=== PATIENT | male | born 1995 | race Two or more races ===

== ENCOUNTER 2025-08-31 20:39 | Inpatient (IN) | payer SELFPAY ==
[2025-08-31 20:40] VITALS: BP 147/92; PULSE 100; RESP 17; TEMP 36.3; O2SAT 97
[2025-08-31 20:41] VITALS: PULSE 95; RESP 20; O2SAT 99
[2025-08-31 20:42] VITALS: BMI 22.3
--- NOTE | 2025-08-31 20:48 | PD.EDALCOH ---
ED Alcohol RME/HPI General Chief Complaint: Alcohol Stated Complaint: HYPERGLYCEMIA Time Seen by Provider: 08/31/25 20:41 Arrival date/time: 08/31/25 20:39 30-year-old male patient came in for evaluation regarding hyperglycemia. Apparently patient was noted to be more lethargic than usual, has been drinking all day today, consuming already 12 packs of beer. Patient denies any fever. Denies any abdominal pain denies any trauma or fall. Patient blood sugar was noted to be above 500 per EMS. Patient told me that he took his insulin today. Related Data Allergies Allergy/AdvReac Type Severity Reaction Status Date / Time No Known Allergies Allergy Verified 08/31/25 20:40 Review of Systems Review of Systems Narrative Review of Systems: Review of system reviewed and within normal limits except mentioned in HPI ED Exam Narrative Physical exam: VITAL SIGNS: Reviewed. GENERAL APPEARANCE: Alert oriented however drowsy, follows commands, no acute distress, HEAD AND FACE: Non-traumatic. ENT: PERRL, pink conjunctivitis, eyelid no trauma, Mucous membrane moist. NECK: Supple, nontender, no nuchal rigidity. CHEST: No tenderness, no crepitus, no paradoxical movement, no retractions. LUNGS: Clear, well ventilated, symmetric, no rales, no wheezing, no ronchi, no stridor, good breath sounds bilaterally. HEART: Regular rate, regular rhythm, no murmur, no gallops. ABDOMEN: Soft, positive bowel sounds, nondistended, no guarding, nontender, no rebound, no masses, RECTAL: Deferred. GENITAL: Deferred. NEUROLOGICAL: Gross motor function intact sensory function intact, Appropriate for age. MUSCULOSKELETAL: low back nontender, full range of motion. EXTREMITIES: Nontender, full range of motion. SKIN: Color pink, dry, no rash, no lacerations, no abrasions, no contusions. LYMPHATICS: Deferred. Course Quality Measures none Orders Category Date Time Status Admit to Inpatient Status Routine Admission 09/01/25 00:16 Active Patient Condition Routine Admission 09/01/25 00:16 Ordered Bedside Blood Glucose Q1H Care 09/01/25 00:14 Active COVID-19 Screening Questionnaire NOW Care 08/31/25 23:58 Active Computational Mathematician Q4H Care 09/01/25 00:14 Active DKA Protocol QSHIFT Care 09/01/25 00:14 Active Decision to Admit X1 Care 08/31/25 23:58 Completed Intake and Output Q1H Care 09/01/25 00:15 Ordered Intake and Output Q1H Care 09/01/25 01:15 Ordered Intake and Output Q1H Care 09/01/25 02:15 Ordered Intake and Output Q1H Care 09/01/25 03:15 Ordered Intake and Output Q1H Care 09/01/25 04:15 Ordered Intake and Output Q1H Care 09/01/25 05:15 Ordered Intake and Output Q1H Care 09/01/25 06:15 Ordered Intake and Output Q1H Care 09/01/25 07:15 Ordered Intake and Output Q1H Care 09/01/25 08:15 Ordered Intake and Output Q1H Care 09/01/25 09:15 Ordered Intake and Output Q1H Care 09/01/25 10:15 Ordered Intake and Output Q1H Care 09/01/25 11:15 Ordered Intake and Output Q1H Care 09/01/25 12:15 Ordered Intake and Output Q1H Care 09/01/25 13:15 Ordered Intake and Output Q1H Care 09/01/25 14:15 Ordered Intake and Output Q1H Care 09/01/25 15:15 Ordered Intake and Output Q1H Care 09/01/25 16:15 Ordered Intake and Output Q1H Care 09/01/25 17:15 Ordered Intake and Output Q1H Care 09/01/25 18:15 Ordered Intake and Output Q1H Care 09/01/25 19:15 Ordered Intake and Output Q1H Care 09/01/25 20:15 Ordered Intake and Output Q1H Care 09/01/25 21:15 Ordered Intake and Output Q1H Care 09/01/25 22:15 Ordered Intake and Output Q1H Care 09/01/25 23:15 Ordered Miscellaneous Nursing Order NOW Care 09/01/25 00:20 Active NPO NOW Care 09/01/25 00:14 Active Notify provider NEEDED Care 09/01/25 00:14 Active Obtain weight NOW Care 09/01/25 00:20 Active Referral Registered Dietitian Routine Cons 09/01/25 00:14 Active Diet NPO (NOW) Diet 09/01/25 00:14 Active Acetone [Beta Hydroxybutyrate] Stat Lab 08/31/25 23:06 Completed Alcohol, Blood Medical Stat Lab 08/31/25 23:06 Completed Beta Hydroxybutyrate DAILY Lab 09/02/25 09:00 Ordered Beta Hydroxybutyrate DAILY Lab 09/03/25 09:00 Ordered Beta Hydroxybutyrate DAILY Lab 09/04/25 09:00 Ordered CBC AM DRAW Lab 09/02/25 05:00 Ordered CBC AM DRAW Lab 09/03/25 05:00 Ordered CBC AM DRAW Lab 09/04/25 05:00 Ordered CBC Stat Lab 08/31/25 21:17 Completed Comprehensive Metabolic Panel Stat Lab 08/31/25 23:06 Completed Drug Screen,Urine Stat Lab 08/31/25 21:21 Completed Glycohemoglobin w (eAG) Routine Lab 09/01/25 00:00 Completed Lactate (Lactic Acid) Q4H Lab 09/01/25 04:20 Completed Lactate (Lactic Acid) Q4H Lab 09/01/25 09:00 Completed Lactate (Lactic Acid) Q4H Lab 09/01/25 12:15 Stop Req MRSA Nasal Screen Stat Lab 09/01/25 00:20 Ordered Magnesium Q4H Lab 09/01/25 04:20 Completed Magnesium Q4H Lab 09/01/25 09:00 Completed Magnesium Q4H Lab 09/01/25 12:15 Ordered Magnesium Q4H Lab 09/01/25 16:15 Ordered Magnesium Q4H Lab 09/01/25 20:15 Ordered Magnesium Q4H Lab 09/02/25 00:15 Ordered Magnesium Q4H Lab 09/02/25 04:15 Ordered Magnesium Q4H Lab 09/02/25 08:15 Ordered Magnesium Q4H Lab 09/02/25 12:15 Ordered Magnesium Q4H Lab 09/02/25 16:15 Ordered Magnesium Q4H Lab 09/02/25 20:15 Ordered Magnesium Q4H Lab 09/03/25 00:15 Ordered Magnesium Stat Lab 08/31/25 23:06 Completed Partial Thromboplastin Time Stat Lab 08/31/25 21:17 Completed Phosphorous Q4H Lab 09/02/25 00:15 Ordered Phosphorous Q4H Lab 09/02/25 04:15 Ordered Phosphorous Q4H Lab 09/02/25 08:15 Ordered Phosphorous Q4H Lab 09/02/25 12:15 Ordered Phosphorous Q4H Lab 09/02/25 16:15 Ordered Phosphorous Q4H Lab 09/02/25 20:15 Ordered Phosphorous Q4H Lab 09/03/25 00:15 Ordered Phosphorous Stat Lab 08/31/25 23:06 Completed Renal Function Panel Q4 Lab 09/01/25 04:20 Completed Renal Function Panel Q4 Lab 09/01/25 09:00 Completed Renal Function Panel Q4 Lab 09/01/25 12:15 Ordered Renal Function Panel Q4 Lab 09/01/25 16:15 Ordered Renal Function Panel Q4 Lab 09/01/25 20:15 Ordered Renal Function Panel Q4 Lab 09/02/25 00:15 Ordered Renal Function Panel Q4 Lab 09/02/25 04:15 Ordered Renal Function Panel Q4 Lab 09/02/25 08:15 Ordered Renal Function Panel Q Lab 09/02/25 12:15 Ordered Renal Function Panel Q Lab 09/02/25 16:15 Ordered Renal Function Panel Q Lab 09/02/25 20:15 Ordered Renal Function Panel Q Lab 09/03/25 00:15 Ordered UA, C/S IF [Urinalysis, C/S if Indicated] Stat Lab 08/31/25 21:21 Completed VBG [Venous Blood Gas] Stat Lab 08/31/25 21:17 Completed Acetaminophen Tab [Tylenol Tab] Med 09/01/25 00:19 Active 650 mg PO Q6H PRN Dextrose 5%-Lactated Ringers [D5-Lr] 1,000 ml Med 09/01/25 00:13 Active Pot Chl Additive [KCl Additive] 20 meq IV 250 mls/hr Dextrose 5%-Lactated Ringers [D5-Lr] 1,000 ml Med 09/01/25 00:13 Active Pot Chl Additive [KCl Additive] 40 meq IV 250 mls/hr Dextrose 5%-Lactated Ringers [D5-Lr] 1,000 ml Med 09/01/25 00:13 Active IV 250 mls/hr Dextrose 50% Syr [D50w Syringe Abboject] Med 09/01/25 00:13 Active 25 ml IV PRNMRX1 PRN Famotidine Inj [Pepcid Inj] Med 09/01/25 09:00 Active 20 mg IVP QDAY Heparin Inj Med 09/01/25 06:00 Active 5,000 unit SC Q8HR Insulin Reg 100 Units/100 ml [Myxredlin] Med 08/31/25 23:56 Active 100 unit in 100 ml IV 0.1 unit/kg/hr Insulin Regular Med 09/01/25 00:13 Discontinued 5.9 unit IV X1 ONE Magnesium Sulfate 2 GM Ivpb [Magnesium Sulfate Ivpb] Med 09/01/25 00:13 Active 2 gm in 50 ml IV 25 mls/hr Ondansetron Inj [Zofran Inj] Med 09/01/25 00:19 Active 4 mg IV Q6H PRN Ondansetron Inj [Zofran Inj] Med 08/31/25 21:09 Discontinued 4 mg IVP X1 ONE POT PHOS 15 mMol in NS 250 ML [Pot Phos 15 mMol in NS Med 09/01/25 00:13 Active 250 ml] 15 mmol in 250 ml IV PRN POTASSIUM CHL 10 mEq IVPB [Kcl Ivpb] Med 09/01/25 00:13 Active 10 meq in 100 ml IV 100 mls/hr POTASSIUM CHL 10 mEq IVPB [Kcl Ivpb] Med 09/01/25 00:13 Active 10 meq in 100 ml IV PRN Ringers Lactated 1000 ml [Lactated Ringers] 1,000 ml Med 09/01/25 00:13 Active Pot Chl Additive [KCl Additive] 20 meq IV 250 mls/hr Ringers Lactated 1000 ml [Lactated Ringers] 1,000 ml Med 09/01/25 00:13 Active Pot Chl Additive [KCl Additive] 40 meq IV 250 mls/hr Ringers Lactated 1000 ml [Lactated Ringers] 1,000 ml Med 09/01/25 00:13 Active IV 250 mls/hr Ringers Lactated 1000 ml [Lactated Ringers] 1,000 ml Med 08/31/25 20:47 Discontinued IV 999 mls/hr Ringers Lactated 1000 ml [Lactated Ringers] 1,000 ml Med 08/31/25 20:51 Discontinued IV 999 mls/hr Senna [Senokot] Med 09/01/25 00:19 Active 2 tab PO BID PRN Sodium Bicarb 8.4% SYR Med 09/01/25 00:13 Active 50 ml IV Q4HR PRN Sodium Chloride 0.9% 250 ml [Ns] 250 ml Med 09/01/25 00:13 Active Sod Phos Additive [NaPhos Additive] 15 mmol IV 62.5 mls/hr Code Status Routine Oth 09/01/25 00:13 Ordered Oxygen Delivery DAILY RT 09/01/25 00:20 Active Vital Signs Vital signs: Vital Signs Temperature 97.3 F 08/31/25 20:40 Pulse Rate 100 08/31/25 20:40 Respiratory Rate 17 08/31/25 20:40 Blood Pressure 147/92 H 08/31/25 20:40 Pulse Oximetry (%) 97 08/31/25 20:40 Oxygen Delivery Method Room Air 08/31/25 20:40 Discharge Plan Plan Patient Disposition: Admit Acute Care w/in Hospital Problem List Clinical Impression: DKA (diabetic ketoacidosis) Alcohol MDM Narrative MDM Narrative: 08/31/25 20:39 30-year-old male patient came in for evaluation regarding hyperglycemia. Apparently patient was noted to be more lethargic than usual, has been drinking all day today, consuming already 12 packs of beer. Patient denies any fever. Denies any abdominal pain denies any trauma or fall. Patient blood sugar was noted to be above 500 per EMS. Patient told me that he took his insulin today. Care transferred to Dr Aquino for final disposition Patient data External records reviewed:: None Clinical information provided by:: none Social determinants that could affect healthcare access:: substance use Patient has the following chronic illnesses:: Type 1 diabetes mellitus How is presenting disease/condition affected by chronic disease/condition?: exacerbated by Evaluation data The following diagnostics were reviewed and interpreted by me:: lab results, radiology exam(s) and EKG tracing(s) Lab and/or radiology exams considered but not ordered:: None Interpretation Summary: Pending results Medications / Prescriptions Medications or Prescriptions considered but not ordered:: None Medication administrations:: Medication Administration History Acetaminophen (Acetaminophen 325 Mg Tablet) 650 mg PO Q6H PRN PRN Reason: PAIN 1-10 OR FEVER > 101 Stop: 10/01/25 00:18 Dextrose (Dextrose 50%-Water Inj 50 Ml Syringe) 25 ml IV PRNMRX1 PRN PRN Reason: Blood Sugar - Low Famotidine (Famotidine Inj 10 Mg/Ml Vial 2 Ml) 20 mg IVP QDAY DIANE Stop: 10/01/25 08:59 Last Admin: 09/01/25 08:32 Dose: 20 mg Documented By: AT Folic Acid (Folic Acid 1 Mg Tablet) 1 mg PO BID IDANE Stop: 09/06/25 08:59 Last Admin: 09/01/25 08:51 Dose: 1 mg Documented By: AT Heparin Sodium (Porcine) (Heparin Sod Inj 5000 Unit/Ml Vial) 5,000 unit SC Q8HR DIANE Stop: 09/15/25 05:59 Last Admin: 09/01/25 05:53 Dose: 5,000 unit Documented By: AD Co-signed By: YEISON Insulin Human Regular (Myxredlin) 100 unit in 100 mls @ 5.897 mls/hr IV .[id number] PRN; Protocol PRN Reason: PER PROTOCOL Stop: 09/30/25 23:55 Last Titration: 09/01/25 11:00 Dose: 0.05 unit/kg/hr, 2.948 mls/hr Documented By: AT Co-signed By: sandi Titration: 09/01/25 10:00 Dose: 0.05 unit/kg/hr, 2.948 mls/hr Documented By: AT Co-signed By: sandi Titration: 09/01/25 09:00 Dose: 0.025 unit/kg/hr, 1.474 mls/hr Documented By: AT Co-signed By: MG Titration: 09/01/25 08:00 Dose: 0.05 unit/kg/hr, 2.948 mls/hr Documented By: AT Co-signed By: MG Titration: 09/01/25 06:00 Dose: 0.1 unit/kg/hr, 5.897 mls/hr Documented By: NINO Co-signed By: YEISON Admin: 09/01/25 02:35 Dose: 0.1 unit/kg/hr, 5.897 mls/hr Documented By: DT Co-signed By: Potassium Chloride 20 meq/ (Dextrose/Lactated Ringer's) 1,010 mls @ 250 mls/hr IV .Q4H3M PRN PRN Reason: K LEVEL 3.3 TO 5.3 mM/L Stop: 10/01/25 00:12 Last Admin: 09/01/25 08:32 Dose: 250 mls/hr Documented By: AT Potassium Chloride 40 meq/ (Dextrose/Lactated Ringer's) 1,020 mls @ 250 mls/hr IV .Q4H5M PRN PRN Reason: K LEVEL < 3.3mM/L Stop: 10/01/25 00:12 Potassium Chloride (Kcl Ivpb) 10 meq in 100 mls @ 100 mls/hr IV .Q1H PRN PRN Reason: IF POTASSIUM LESS THAN 3.3 Stop: 10/01/25 00:12 Magnesium Sulfate (Magnesium Sulfate Ivpb) 2 gm in 50 mls @ 25 mls/hr IV .Q2H PRN PRN Reason: PER DKA PROTOCOL Stop: 10/01/25 00:12 Dextrose/Lactated Ringer's (D5-Lr) 1,000 mls @ 250 mls/hr IV .Q4H PRN PRN Reason: PER PROTOCOL Stop: 10/01/25 00:12 Lactated Ringer's (Lactated Ringers) 1,000 mls @ 250 mls/hr IV .Q4H PRN PRN Reason: PER PROTOCOL Stop: 09/02/25 00:12 Last Infusion: 09/01/25 08:32 Dose: 0 mls/hr Documented By: Admin: 09/01/25 06:31 Dose: 250 mls/hr Documented By: Infusion: 09/01/25 06:31 Dose: Infused Documented By: Admin: 09/01/25 02:32 Dose: 250 mls/hr Documented By: DT Potassium Chloride 20 meq/ (Lactated Ringer's) 1,010 mls @ 250 mls/hr IV .Q4H3M PRN PRN Reason: K LEVEL 3.3 TO 5.3mM/L Stop: 10/01/25 00:12 Potassium Chloride 40 meq/ (Lactated Ringer's) 1,020 mls @ 250 mls/hr IV .Q4H5M PRN PRN Reason: K LEVEL < 3.3 mM/L Stop: 10/01/25 00:12 Potassium Chloride (Kcl Ivpb) 10 meq in 100 mls @ 50 mls/hr IV PRN PRN PRN Reason: K LEVEL 3.3 to 5.3 & BG > 200 Stop: 10/01/25 00:12 Last Infusion: 09/01/25 08:32 Dose: Infused Documented By: Admin: 09/01/25 05:53 Dose: 50 mls/hr Documented By: Infusion: 09/01/25 05:06 Dose: Infused Documented By: Admin: 09/01/25 02:34 Dose: 50 mls/hr Documented By: DT Potassium Phosphate (Pot Phos 15 Mmol In Ns 250 Ml) 15 mmol in 250 mls @ 62.5 mls/hr IV PRN PRN PRN Reason: Phosphate <= 1mg/dL Stop: 10/01/25 00:12 Sodium Phosphate 15 mmol/ (Sodium Chloride) 255 mls @ 62.5 mls/hr IV .Q4H5M PRN PRN Reason: Phosphate <= 1mg/dL and K> than 5.3 Stop: 10/01/25 00:12 Lorazepam (Lorazepam 0.5 Mg Tablet) 0.5 mg PO Q4HR PRN PRN Reason: CIWA Score 2-6 Stop: 09/06/25 00:51 Lorazepam (Lorazepam 0.5 Mg Tablet) 1 mg PO Q4HR PRN PRN Reason: CIWA SCORE 7-11 Stop: 09/06/25 00:51 Lorazepam (Lorazepam 0.5 Mg Tablet) 2 mg PO Q4HR PRN PRN Reason: CIWA SCORE 12-15 Stop: 09/06/25 00:51 Ondansetron HCl (Ondansetron Inj 2 Mg/Ml Inj 2 Ml) 4 mg IV Q6H PRN; Protocol PRN Reason: NAUSEA OR VOMITING Stop: 10/01/25 00:18 Last Admin: 09/01/25 02:42 Dose: 4 mg Documented By: MIGUEL ÁNGEL Sennosides (Senna Tablet) 2 tab PO BID PRN; Protocol PRN Reason: CONSTIPATION Stop: 10/01/25 00:18 Sodium Bicarbonate (Sodium Bicarb Inj 8.4% Syr 50 Ml Syringe) 50 ml IV Q4HR PRN PRN Reason: For ph <= to 7.0 Stop: 10/01/25 00:12 Thiamine HCl (Thiamine 100 Mg Tablet) 100 mg PO QDAY [facility] [place] Stop: 10/01/25 08:59 Last Admin: 09/01/25 08:51 Dose: 100 mg Documented By: AT Discontinued Medications Folic Acid (Folic Acid Inj 1 Mg/0.2 Ml) 1 mg IVP QDAY ONE Stop: 09/01/25 00:54 Last Admin: 09/01/25 02:45 Dose: 1 mg Documented By: DT Folic Acid (Folic Acid 1 Mg Tablet) 1 mg PO QDAY [facility] [place] Stop: 10/01/25 08:59 Lactated Ringer's (Lactated Ringers) 1,000 mls @ 999 mls/hr IV .Q1H1M ONE Stop: 08/31/25 21:47 Last Infusion: 08/31/25 22:20 Dose: Infused Documented By: Admin: 08/31/25 21:19 Dose: 999 mls/hr Documented By: DT Lactated Ringer's (Lactated Ringers) 1,000 mls @ 999 mls/hr IV .Q1H1M ONE Stop: 08/31/25 21:51 Last Infusion: 08/31/25 22:19 Dose: Infused Documented By: Admin: 08/31/25 21:18 Dose: 999 mls/hr Documented By: DT Insulin Human Regular (Insulin Hum Regular 1 Unit/0.01 Ml (Per Unit)) 5.9 unit 0.1 unit/kg (5.9 unit) IV X1 ONE Stop: 09/01/25 00:14 Last Admin: 09/01/25 02:43 Dose: 5.9 unit Documented By: MIGUEL ÁNGEL Co-signed By: Ondansetron HCl (Ondansetron Inj 2 Mg/Ml Inj 2 Ml) 4 mg IVP X1 ONE; Protocol Stop: 08/31/25 21:10 Last Admin: 08/31/25 21:24 Dose: 4 mg Documented By: MIGUEL ÁNGEL See above Consultations Consultation(s) initiated? (list below): No Diagnosis Differential diagnosis alcohol: alcohol withdrawal delirium, alcohol intoxication and alcohol ketoacidosis Most likely diagnosis given after review of the tests above:: DKA Admission Indicated Admission indicated?: indicated Admission Request Was there a request for admission?: No Admission Attestation Admission request attestation: Pending results Disposition Plan Disposition Plan: other (specify) (Pending results)
[2025-08-31 21:14] VITALS: BP 132/92; PULSE 88; O2SAT 100
[2025-08-31] MEDS: RINGERS LACTATED 1000 ML 1,000 ML 999 ML IV ×2 (21:18→21:19)
[2025-08-31] MEDS: ONDANSETRON INJ 2 MG/ML INJ 2 ML 4 MG IVP (21:24)
[2025-08-31 21:29] VITALS: BP 132/92; PULSE 79; RESP 14; TEMP 36; O2SAT 99
[2025-08-31 21:31] LABS: Collection Type, Urine Clean Catch; Squamous Epithelial Cell,Urine 0 /hpf (0-5); WBC,Urine 0 /hpf (0-5)
[2025-08-31 21:33] LABS: Base Excess, Venous -10 (-3-3); O2 Saturation, Venous 47 % (96-97); PCO2, Venous 37 mmHg (36-56); PO2, Venous 28 mmHg (15-58); pH, Venous 7.26 (7.33-7.66)
[2025-08-31 21:35] LABS: Basophils # (Auto) 0.1 Thou/mm3 (0.0-0.2); Basophils % (Auto) 1 % (0-2.5); Eosinophils # (Auto) 0.1 Thou/mm3 (0.0-0.5); Eosinophils % (Auto) 1 % (0-10); Hematocrit 45.1 % (41.0-53.0); Hemoglobin 15.7 g/dL (13.5-16.0); Immature Granulocytes Auto 0.03 Thou/mm3 (0.00-0.00); Lymphocytes # (Auto) 1.5 Thou/mm3 (1.0-4.8); Lymphocytes % (Auto) 20 % (10-50); Mean Corpuscular HGB Conc 34.8 g/dl (31.0-37.0); Mean Corpuscular Hemoglobin 32.5 pg (25.0-35.0); Mean Corpuscular Volume 93 fL (80-100); Monocytes # (Auto) 0.5 Thou/mm3 (0.0-0.8); Monocytes % (Auto) 7 % (0-12); Neutrophils # (Auto) 5.1 Thou/mm3 (1.8-7.7); Neutrophils % (Auto) 70 % (37-80); Nucleated Red Blood Cell # 0.00 Thou/mm3 (0.00-0.00); Nucleated Red Blood Cell % 0 /100 WBC (0); Platelet Count 185 Thou/mm3 (140-440); RDW Standard Deviation 46.0 fL (35.1-43.9); Red Blood Count 4.83 Miln/mm3 (4.50-5.90); White Blood Count 7.3 Thou/mm3 (3.8-10.6)
[2025-08-31 21:36] LABS: Bilirubin,Urine Negative (Negative); Blood,Urine Negative (Negative); Clarity,Urine Clear (Clear/Hazy); Color,Urine Colorless (Lt Yel-Yel); Culture Indicated,Urine Not Indicated; Glucose, Urine 4+ (Negative); Ketones,Urine 2+ (Negative); Leukocyte Esterase,Urine Negative (Negative); Nitrite,Urine Negative (Negative); PH,Urine 5.5 (5.0-7.0); Protein,Urine Negative (Neg - Trace); RBC,Urine 1 /hpf (0-3); Specific Gravity,Urine 1.036 (1.001-1.035); Urobilinogen,Urine Negative mg/dL (0.0-1.0)
[2025-08-31 21:44] LABS: Beta Hydroxybutyrate 4.1 mmol/L (<0.6)
[2025-08-31 21:47] LABS: Amphetamine/Methamp Scrn,U Negative (Negative); Barbiturate Screen,Urine Negative (Negative); Benzodiazepines Screen,Urine Negative (Negative); Benzoylecgonine Screen, Ur Negative (Negative); Fentanyl Screen,Urine Negative (Negative); Opiate Screen,Urine Negative (Negative); THC Screen,Urine Negative (Negative)
[2025-08-31 21:55] LABS: Partial Thromboplastin Time 20.9 Seconds (22.0-36.0)
[2025-08-31 22:00] VITALS: BP 128/86; PULSE 95; RESP 16; TEMP 36.1; O2SAT 99
[2025-08-31 23:00] VITALS: BP 139/96; PULSE 85; RESP 14; O2SAT 99
[2025-08-31 23:45] LABS: Alanine Aminotransferase 18 U/L (10-49); Albumin, Serum 4.5 gm/dL (3.5-5.0); Albumin/Globulin Ratio 1.8 (1.2-2.2); Alcohol, Blood Medical 165.1 mg/dL (0-10.0); Alkaline Phosphatase 144 U/L (46-116); Anion Gap 23 (7-16); Aspartate Amino Transferase 16 U/L (0-34); BUN/Creatinine Ratio 6 Ratio (12-20); Bilirubin,Total 0.4 mg/dL (0.3-1.2); Blood Urea Nitrogen 6 mg/dL (9-23); Calcium 8.9 mg/dL (8.3-10.6); Calcium (Corrected) 8.9 mg/dL (8.5-10.1); Carbon Dioxide 15.1 mMol/L (20.0-31.0); Chloride 99 mMol/L (98-107); Creatinine (Component) 1.0 mg/dL (0.6-1.3); Estimated Creatinine Clearance 89.3 mL/min (>60); Globulin 2.5 gm/dL (2.3-3.5); Magnesium 2.0 mg/dL (1.6-2.6); Osmolality,Calculated 300 (275-295); Phosphorous 4.2 mg/dL (2.4-5.1); Potassium 4.2 mMol/L (3.4-5.1); Sodium 137 mMol/L (136-145); Total Protein 7.0 gm/dL (5.7-8.2); eGFR > 60 See Note
[2025-08-31 23:51] LABS: Glucose 620 mg/dL (74-106)
[2025-09-01] VITALS (20 sets, daily range): BP systolic 114–148; BP diastolic 62–90; PULSE 64–100; RESP 8–28; TEMP 36.4–36.6; O2SAT 96–100; BMI 25.5
--- NOTE | 2025-09-01 00:11 | PD.EDADDENDU ---
Emergency Room Addendum Addendum Narrative: I took over the care from Paris Jones NP at _11PM_ on _08/31/25_. See previous notes for complete H & P and ED course. I reviewed all diagnostic test results. Diagnoses include: DKA Alcohol tox occasion Treatment here included: IVF Insulin drip I discussed the case with our ICU team. About the presentation and exam and diagnostics and treatments here. And need of further care in the hospital. Will accept the patient. Regis Aquino MD
--- NOTE | 2025-09-01 00:28 | ESHP_ITS ---
Documentation for date of: 09/01/25 [facility] History of Present Illness History of present illness: Patient is 30-year-old male with a past medical history of diabetes mellitus type 2, on insulin for the past 1 year, reported no specific complaints, patient was sleepy and noncooperative on initial encounter but eventually he was more alert and volunteered information to [facility], reported he is not sure why he is in the emergency room who brought him here. They report that he was feeling dizzy and lethargic today, he reported he is not feeling dizzy right now just more sleepy at the moment. Patient reported he was diagnosed with diabetes mellitus 2 years ago, and started on insulin for the past 1 year, takes 22 units of insulin twice daily and is reportedly compliant with meds, states he drank alcohol today for Thanksgiving up to 6 tall cans of beer. He is an occasional drinker, patient denies any fever, chest pain, abdominal pain, nausea vomiting, diarrhea or dysuria. Denied any illicit drug use. ER course:Patient came to the ER complaining of lethargy, noted to have hyperglycemia, anion gap metabolic acidosis, started on insulin drip. CHEM panel shows 7\15.1 anion gap 23, glucose 623, BHB 4.1, CBC shows normal WBC and hemoglobin. Venous blood gas consistent with metabolic acidosis. 7.26, pCO2 37 pO2 28. Patient will be admitted to ICU for insulin drip. Past medical history: Pertinent for diabetes mellitus likely type II but patient is unsure. Takes Jardiance and metformin in addition to insulin. Family history: Father at 54 years old with heart attack. Social history: Denies smoking, meth, cocaine and marijuana, endorses drinking alcohol only occasionally. Review of Systems Review of Systems Systems Reviewed: All systems reviewed, normal except as documented Past Medical History Social History SMOKING STATUS: Never smoker Exam Vital Signs Temp Pulse Resp BP Pulse Ox O2 Del Method 96.8 F 79 14 132/92 H 99 Room Air 08/31/25 21:08/31/25 21:29 08/31/25 21:29 08/31/25 21:29 08/31/25 21:08/31/25 21:29 Narrative Exam General: AOx3, cooperative Skin: Intact, no cyanosis or edema noted. Multiple tattoos all over the body. HEENT: Atraumatic/normocephalic, KASSANDRA, neck supple Heart: RRR, S1 and S2 without clicks or murmurs Lungs: Clear on auscultation bilaterally, no difficulty breathing Abdomen: Soft, nontender. Bowel sounds present . Vascular: Peripheral pulses palpable Neuro: No focal neurological deficits noted. Results: Labs 08/31/25 21:17 08/31/25 23:06 Labs: Short CBC 08/31/25 Range/Units 21:17 WBC 7.3 (3.8-10.6) Thou/mm3 Hgb 15.7 (13.5-16.0) g/dL Hct 45.1 (41.0-53.0) % Plt Count 185 (140-440) Thou/mm3 BMP 08/31/25 23:06 Sodium 137 Potassium 4.2 Chloride 99 Carbon Dioxide 15.1 L BUN 6 L Creatinine 1.0 Glucose 620 H* Calcium 8.9 Liver Function 08/31/25 Range/Units 23:06 Total Bilirubin 0.4 (0.3-1.2) mg/dL AST 16 (0-34) U/L ALT 18 (10-49) U/L Alkaline Phosphatase 144 H (46-116) U/L Albumin 4.5 (3.5-5.0) gm/dL Urine 08/31/25 Range/Units 21:21 Urine Color Colorless A (Lt Yel-Yel) Urine Clarity Clear (Clear/Hazy) Urine pH 5.5 (5.0-7.0) Ur Specific [place] 1.036 H (1.001-1.035) Urine Protein Negative (Neg - Trace) Urine Glucose (UA) 4+ A (Negative) ABG Interpretation ABG results: 08/31/25 21:17 VBG pH 7.26 L VBG pCO2 37 VBG pO2 28 VBG Base Excess -10 L Quality Measures Quality Measures VTE prophylaxis Medications Home Medications and Allergies Allergies Allergy/AdvReac Type Severity Reaction Status Date / Time No Known Allergies Allergy Verified 08/31/25 20:40 Visit Medications Acetaminophen (Acetaminophen 325 Mg Tablet) 650 mg PO Q6H PRN PRN Reason: PAIN OR FEVER > 101 Stop: 10/01/25 00:18 Dextrose (Dextrose 50%-Water Inj 50 Ml Syringe) 25 ml IV [id number] PRN PRN Reason: Blood Sugar - Low Famotidine (Famotidine Inj 10 Mg/Ml Vial 2 Ml) 20 mg IVP QDAY DIANE Stop: 10/01/25 08:59 Heparin Sodium (Porcine) (Heparin Sod Inj 5000 Unit/Ml Vial) 5,000 unit SC Q8HR DIANE Stop: 09/15/25 05:59 Insulin Human Regular (Myxredlin) 100 unit in 100 mls @ 5.897 mls/hr IV .[id number] PRN; Protocol PRN Reason: PER PROTOCOL Stop: 09/30/25 23:55 Potassium Chloride 20 meq/ (Dextrose/Lactated Ringer's) 1,010 mls @ 250 mls/hr IV .Q4H3M PRN PRN Reason: K LEVEL 3.3 TO 5.3 mM/L Stop: 10/01/25 00:12 Potassium Chloride 40 meq/ (Dextrose/Lactated Ringer's) 1,020 mls @ 250 mls/hr IV .Q4H5M PRN PRN Reason: K LEVEL < 3.3mM/L Stop: 10/01/25 00:12 Potassium Chloride (Kcl Ivpb) 10 meq in 100 mls @ 100 mls/hr IV .Q1H PRN PRN Reason: IF POTASSIUM LESS THAN 3.3 Stop: 10/01/25 00:12 Magnesium Sulfate (Magnesium Sulfate Ivpb) 2 gm in 50 mls @ 25 mls/hr IV .Q2H PRN PRN Reason: PER DKA PROTOCOL Stop: 10/01/25 00:12 Dextrose/Lactated Ringer's (D5-Lr) 1,000 mls @ 250 mls/hr IV .Q4H PRN PRN Reason: PER PROTOCOL Stop: 10/01/25 00:12 Lactated Ringer's (Lactated Ringers) 1,000 mls @ 250 mls/hr IV .Q4H PRN PRN Reason: PER PROTOCOL Stop: 09/02/25 00:12 Potassium Chloride 20 meq/ (Lactated Ringer's) 1,010 mls @ 250 mls/hr IV .Q4H3M PRN PRN Reason: K LEVEL 3.3 TO 5.3mM/L Stop: 10/01/25 00:12 Potassium Chloride 40 meq/ (Lactated Ringer's) 1,020 mls @ 250 mls/hr IV .Q4H5M PRN PRN Reason: K LEVEL < 3.3 mM/L Stop: 10/01/25 00:12 Potassium Chloride (Kcl Ivpb) 10 meq in 100 mls @ 50 mls/hr IV PRN PRN PRN Reason: K LEVEL 3.3 to 5.3 & BG > 200 Stop: 10/01/25 00:12 Potassium Phosphate (Pot Phos 15 Mmol In Ns 250 Ml) 15 mmol in 250 mls @ 62.5 mls/hr IV PRN PRN PRN Reason: Phosphate <= 1mg/dL Stop: 10/01/25 00:12 Sodium Phosphate 15 mmol/ (Sodium Chloride) 255 mls @ 62.5 mls/hr IV .Q4H5M PRN PRN Reason: Phosphate <= 1mg/dL and K> than 5.3 Stop: 10/01/25 00:12 Ondansetron HCl (Ondansetron Inj 2 Mg/Ml Inj 2 Ml) 4 mg IV Q6H PRN; Protocol PRN Reason: NAUSEA OR VOMITING Stop: 10/01/25 00:18 Sennosides (Senna Tablet) 2 tab PO BID PRN; Protocol PRN Reason: CONSTIPATION Stop: 10/01/25 00:18 Sodium Bicarbonate (Sodium Bicarb Inj 8.4% Syr 50 Ml Syringe) 50 ml IV Q4HR PRN PRN Reason: For ph <= to 7.0 Stop: 10/01/25 00:12 Discontinued Medications Lactated Ringer's (Lactated Ringers) 1,000 mls @ 999 mls/hr IV .Q1H1M ONE Stop: 08/31/25 21:47 Last Infusion: 08/31/25 22:20 Dose: Infused Lactated Ringer's (Lactated Ringers) 1,000 mls @ 999 mls/hr IV .Q1H1M ONE Stop: 08/31/25 21:51 Last Infusion: 08/31/25 22:19 Dose: Infused Insulin Human Regular (Insulin Hum Regular 1 Unit/0.01 Ml (Per Unit)) 5.9 unit 0.1 unit/kg (5.9 unit) IV X1 ONE Stop: 09/01/25 00:14 Ondansetron HCl (Ondansetron Inj 2 Mg/Ml Inj 2 Ml) 4 mg IVP X1 ONE; Protocol Stop: 08/31/25 21:10 Last Admin: 08/31/25 21:24 Dose: 4 mg Assessment & Plan Plan Patient is 30-year-old male with a past medical history of diabetes mellitus type 2, on insulin for the past 1 year, Patient came to the ER complaining of lethargy, noted to have hyperglycemia, anion gap metabolic acidosis, started on insulin drip. CHEM panel shows 7\15.1 anion gap 23, glucose 623, BHB 4.1, CBC shows normal WBC and hemoglobin. Venous blood gas consistent with metabolic acidosis. 7.26, pCO2 37 pO2 28. Patient will be admitted to ICU for insulin drip. 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 Patient is alert and oriented x 3, and was more cooperative by the end of the encounter. Complaining of dizziness slightly improved, likely secondary to binge alcohol drinking. The patient only drinks alcohol occasionally and denied any withdrawal symptoms or hallucinations or anxiety. Patient denied any diplopia or visual symptoms, will hold off on [employer] imaging at this point. ?Will order CIWA protocol, monitor for withdrawal. 2.CVS: Stable 3.PULM: stable 4.GI: stable 5.Renal: #High anion gap metabolic acidosis Likely secondary to DKA, continue IV fluids and insulin drip per DKA protocol, repeat labs per DKA protocol. 6.ENDOCRINE: #DKA #DM II Type 2 diabetes mellitus, currently on insulin for past 1 year, in addition to Jardiance and metformin, reported compliance with medications, takes 22 units of insulin twice daily, labs consistent with DKA. Patient reports being diabetic type 2 (recommend discussion with pcp to order immunology testing) ? Holding Jardiance and metformin for now ? Continue insulin gtt. ? Repeat renal panel and blood gas ? N.p.o. for now, can resume diet if patient is asymptomatic and able to tolerate p.o. diet. 7.Infectious: No evidence of any infectious process 8.Heme: Stable Disposition: ICU for insuin drip DVT prophylaxis: Heparin subcut GI prophylaxis: famotidine Diet: NPO for now Lines: PIV CODE STATUS: Full Patient case discussed with attending Dr. Dayday Medeiros PGY3 Attending Provider Attestation/Addendum After examining patient and review of the clinical data patient was found to have high probability of imminent deterioration which required my direct management and intervention TOTAL CC TIME: 45 MIN TOTAL TIME: 45 Minutes of direct medical management and planning of care for DKA. I Ant Naylor MD, attest that I was physically present for morrison portions of evaluation, and examined patient, labs and imagings and plan of care were discussed with IM residents team, and I agree with the findings and plans documented above.
[2025-09-01 01:24] LABS: Glucose Estimated Average 344 mg/dL (80-131); Hemoglobin A1C 13.6 % Hgb (4.8-6.0)
[2025-09-01] MEDS: RINGERS LACTATED 1000 ML 1,000 ML 250 ML IV ×2 (02:32→06:31)
[2025-09-01] MEDS: POTASSIUM CHL 10 mEq IVPB 10 MEQ/100 ML BAG 50 MEQ IV ×2 (02:34→05:53)
[2025-09-01] MEDS: INSULIN REG 100 UNITS/100 ML 100 UNIT/100 ML BAG 5.897 UNIT IV (02:35)
[2025-09-01] MEDS: ONDANSETRON INJ 2 MG/ML INJ 2 ML 4 MG IV (02:42)
[2025-09-01] MEDS: INSULIN HUM REGULAR 1 UNIT/0.01 ML (PER UNIT) 5.9 UNIT IV (02:43)
[2025-09-01] MEDS: FOLIC ACID INJ 1 MG/0.2 ML IVP (02:45)
[2025-09-01 04:57] LABS: Lactate (Lactic Acid) 3.1 mMol/L (0.4-2.0)
[2025-09-01 05:25] LABS: Albumin, Serum 4.2 gm/dL (3.5-5.0); Anion Gap 21 (7-16); BUN/Creatinine Ratio 10 Ratio (12-20); Blood Urea Nitrogen 7 mg/dL (9-23); Calcium 8.3 mg/dL (8.3-10.6); Calcium (Corrected) 8.3 mg/dL (8.5-10.1); Carbon Dioxide 15.4 mMol/L (20.0-31.0); Cardiac Risk Estimate 4.7 RATIO (4.0-6.7); Chloride 108 mMol/L (98-107); Cholesterol 212 mg/dL (132-200); Creatinine (Component) 0.7 mg/dL (0.6-1.3); Estimated Creatinine Clearance 127.5 mL/min (>60); Glucose 267 mg/dL (74-106); HDL Cholesterol 45 mg/dL (40-60); LDL Cholesterol,Calculated 132 mg/dL (0-130); Magnesium 1.8 mg/dL (1.6-2.6); Osmolality,Calculated 293 (275-295); Phosphorous 3.3 mg/dL (2.4-5.1); Potassium 3.6 mMol/L (3.4-5.1); Sodium 144 mMol/L (136-145); Triglycerides 177 mg/dL (30-150); eGFR > 60 See Note
--- NOTE | 2025-09-01 05:28 | XR_ITS ---
EXAMINATION: AP chest single view TECHNIQUE: AP portable upright chest single view Date and time: September 01, 2025, 0547 hours INDICATIONS: Shortness of breath chest pain today FINDINGS: Normal heart size Lungs are clear. Osseous structures are intact IMPRESSION: No active disease
[2025-09-01] MEDS: HEPARIN SOD INJ 5000 UNIT/ML VIAL SC ×3 (05:53→21:10)
--- NOTE | 2025-09-01 06:08 | PC.NURSE ---
Attempted to complete med rec. pt does not remember doses. mother instructed to bring medications when coming to visit patient
[2025-09-01 06:10] LABS: Hepatitis A Antibody IgM Non Reactive (Non React); Hepatitis B Core Antibody IgM Non Reactive (Non React); Hepatitis B Surface Antigen Non Reactive (Non React); Hepatitis C Antibody Non Reactive (Non React)
[2025-09-01 07:51] LABS: Reflex Lactate? Y
[2025-09-01 08:30] LABS: Basophils # (Auto) 0.1 Thou/mm3 (0.0-0.2); Basophils % (Auto) 1 % (0-2.5); Eosinophils # (Auto) 0.1 Thou/mm3 (0.0-0.5); Eosinophils % (Auto) 1 % (0-10); Hematocrit 39.4 % (41.0-53.0); Hemoglobin 13.6 g/dL (13.5-16.0); Immature Granulocytes Auto 0.02 Thou/mm3 (0.00-0.00); Lymphocytes # (Auto) 2.3 Thou/mm3 (1.0-4.8); Lymphocytes % (Auto) 33 % (10-50); Mean Corpuscular HGB Conc 34.5 g/dl (31.0-37.0); Mean Corpuscular Hemoglobin 32.9 pg (25.0-35.0); Mean Corpuscular Volume 95 fL (80-100); Monocytes # (Auto) 0.6 Thou/mm3 (0.0-0.8); Monocytes % (Auto) 8 % (0-12); Neutrophils # (Auto) 4.0 Thou/mm3 (1.8-7.7); Neutrophils % (Auto) 56 % (37-80); Nucleated Red Blood Cell # 0.00 Thou/mm3 (0.00-0.00); Nucleated Red Blood Cell % 0 /100 WBC (0); Platelet Count 168 Thou/mm3 (140-440); RDW Standard Deviation 48.0 fL (35.1-43.9); Red Blood Count 4.14 Miln/mm3 (4.50-5.90); White Blood Count 7.1 Thou/mm3 (3.8-10.6)
[2025-09-01] MEDS: POT CHL ADDITIVE 20 MEQ in DEXTROSE 5%-LACTATED RINGERS 1,000 ML 250 MEQ IV (08:32)
[2025-09-01] MEDS: FAMOTIDINE INJ 10 MG/ML VIAL 2 ML 20 MG IVP (08:32)
[2025-09-01] MEDS: THIAMINE 100 MG TABLET PO (08:51)
[2025-09-01] MEDS: FOLIC ACID 1 MG TABLET PO ×2 (08:51→21:08)
[2025-09-01 09:37] LABS: Lactate (Lactic Acid) 1.8 mMol/L (0.4-2.0)
[2025-09-01 10:02] LABS: Albumin, Serum 4.6 gm/dL (3.5-5.0); Anion Gap 13 (7-16); BUN/Creatinine Ratio 8 Ratio (12-20); Blood Urea Nitrogen 6 mg/dL (9-23); Calcium 8.6 mg/dL (8.3-10.6); Calcium (Corrected) 8.6 mg/dL (8.5-10.1); Carbon Dioxide 21.9 mMol/L (20.0-31.0); Chloride 109 mMol/L (98-107); Creatinine (Component) 0.8 mg/dL (0.6-1.3); Estimated Creatinine Clearance 112.0 mL/min (>60); Glucose 121 mg/dL (74-106); Magnesium 2.0 mg/dL (1.6-2.6); Osmolality,Calculated 285 (275-295); Phosphorous 3.5 mg/dL (2.4-5.1); Potassium 3.7 mMol/L (3.4-5.1); Sodium 144 mMol/L (136-145); eGFR > 60 See Note
--- NOTE | 2025-09-01 10:45 | CHAP ---
Patient was visited by the Spiritual Care Volunteer who prayed for them. (Volunteer was in the hospital from 09:30-10:45)
--- NOTE | 2025-09-01 10:52 | ESPR_ITS ---
Documentation for date of: 09/01/25 Subjective Subjective Interval history: Patient is 30-year-old male with a past medical history of diabetes mellitus type 2, on insulin for the past 1 year, reported no specific complaints, patient was sleepy and noncooperative on initial encounter but eventually he was more alert and volunteered information to [facility], reported he is not sure why he is in the emergency room who brought him here. They report that he was feeling dizzy and lethargic today, he reported he is not feeling dizzy right now just more sleepy at the moment. Patient reported he was diagnosed with diabetes mellitus 2 years ago, and started on insulin for the past 1 year, takes 22 units of insulin twice daily and is reportedly compliant with meds, states he drank alcohol today for Thanksgiving up to 6 tall cans of beer. He is an occasional drinker, patient denies any fever, chest pain, abdominal pain, nausea vomiting, diarrhea or dysuria. Denied any illicit drug use. 09/01/2025: Patient was seen and examined at bedside this morning. No acute overnight events. Patient reports no further nausea or vomiting. Stated that he did drink a lot yesterday due to festivities, but that he is not usual drinker. Otherwise patient's anion gap did close twice a day and started patient on degludec 17 units daily as well as sliding scale. Patient was also started on carb consistent low diet. Otherwise we will continue with [facility] protocol for alcohol withdrawals and the patient's alcohol levels were pretty elevated upon admission. Otherwise no other complaints at this time. Will downgrade the patient to MedSur. Exam Vital Signs Temp Pulse Resp BP Pulse Ox O2 Del Method 97.5 F 89 11 L 126/81 100 Room Air 09/01/25 08:00 09/01/25 09:01 09/01/25 09:01 09/01/25 09:01 09/01/25 09:01 09/01/25 08:00 Narrative Exam Gen: A&O X 3, NAD HEENT: NCAT, EOMI, Pupils reactive ANITA, not icteric. External ears normal. No rhinorrhea. Moist mucous membranes. Neck: Supple, full range of motion, no observable masses, No meningeal sign. Lungs: No Respiratory distress, clear bilateral. CV: RRR, no murmurs. Abdomen: Soft, nondistended, No rebound tenderness. MSK: No joint swelling, no redness, peripheral pulses presents, no peripheral edema. Skin: No rashes, petechiae, lesions.. Neuro: No focal neurological deficits appreciated, sensory and motor intact. Psych: Cooperative, appropriate mood and effect. Objective Labs 09/02/25 06:10 09/02/25 06:10 Labs: Laboratory Results - last 24 hr 08/31/25 08/31/25 08/31/25 21:17 21:21 22:02 WBC 7.3 RBC 4.83 Hgb 15.7 Hct 45.1 MCV 93 MCH 32.5 MCHC 34.8 RDW Std Deviation 46.0 H Plt Count 185 Neut % (Auto) 70 Lymph % (Auto) 20 Stokes % (Auto) 7 Eos % (Auto) 1 Baso % (Auto) 1 Neut # (Auto) 5.1 Lymph # (Auto) 1.5 Stokes # (Auto) 0.5 Eos # (Auto) 0.1 Baso # (Auto) 0.1 Immature Gran # (Auto) 0.03 H Absolute Nucleated RBC 0.00 Immature Gran % 0 Nucleated RBC % 0 APTT 20.9 L VBG pH 7.26 L VBG pCO2 37 VBG pO2 28 VBG O2 Sat (Chiqui) 47 L VBG Base Excess -10 L Sodium Potassium Chloride Carbon Dioxide Anion Gap BUN Creatinine Estim Creat Clear Calc eGFR BUN/Creatinine Ratio Glucose Estimated Ave Glu mg/dL Hemoglobin A1c Calculated Osmolality Lactic Acid Calcium Corrected Calcium Phosphorus Cancelled Magnesium Cancelled Total Bilirubin AST ALT Alkaline Phosphatase Total Protein Albumin Globulin Albumin/Globulin Ratio Triglycerides Cholesterol LDL Cholesterol, Calc HDL Cholesterol Cholesterol/HDL Ratio Beta-Hydroxybutyrate/Acetoacetate Ur Collection Type Clean Catch Urine Color Colorless A Urine Clarity Clear Urine pH 5.5 Ur Specific [place] 1.036 H Urine Protein Negative Urine Glucose (UA) 4+ A Urine Ketones 2+ A Urine Blood Negative Urine Nitrite Negative Urine Bilirubin Negative Urine Urobilinogen (Auto) Negative Ur Leukocyte Esterase Negative Urine RBC 1 Urine WBC 0 Ur Squamous Epith Cells 0 Urine Bacteria None Ur Culture Indicated? Not Indicated Urine Opiates Screen Negative Urine Fentanyl Screen Negative Ur Barbiturates Screen Negative U Amphetamin/Meth Scrn Negative U Benzodiazepines Scrn Negative U Cocaine Metab Screen Negative U Marijuana (THC) Screen Negative Ethyl Alcohol Hepatitis A IgM Ab Hep Bs Antigen Hep B Core IgM Ab Hepatitis C Antibody 08/31/25 09/01/25 09/01/25 23:06 00:00 04:20 WBC 7.1 RBC 4.14 L Hgb 13.6 D Hct 39.4 L MCV 95 MCH 32.9 MCHC 34.5 RDW Std Deviation 48.0 H Plt Count 168 Neut % (Auto) 56 Lymph % (Auto) 33 Stokes % (Auto) 8 Eos % (Auto) 1 Baso % (Auto) 1 Neut # (Auto) 4.0 Lymph # (Auto) 2.3 Stokes # (Auto) 0.6 Eos # (Auto) 0.1 Baso # (Auto) 0.1 Immature Gran # (Auto) 0.02 H Absolute Nucleated RBC 0.00 Immature Gran % 0 Nucleated RBC % 0 APTT VBG pH VBG pCO2 VBG pO2 VBG O2 Sat (Chiqui) VBG Base Excess Sodium 137 144 Potassium 4.2 3.6 D Chloride 99 108 H Carbon Dioxide 15.1 L 15.4 L Anion Gap 23 H 21 H BUN 6 L 7 L Creatinine 1.0 0.7 Estim Creat Clear Calc 89.3 127.5 eGFR > 60 > 60 BUN/Creatinine Ratio 6 L 10 L Glucose 620 H* [address] Glu mg/dL 344 H Hemoglobin A1c 13.6 H Calculated Osmolality 300 H 293 Lactic Acid 3.1 H Calcium 8.9 8.3 Corrected Calcium 8.9 8.3 L Phosphorus 4.2 3.3 Magnesium 2.0 1.8 Total Bilirubin 0.4 AST 16 ALT 18 Alkaline Phosphatase 144 H Total Protein 7.0 Albumin 4.5 4.2 Globulin 2.5 Albumin/Globulin Ratio 1.8 Triglycerides 177 H Cholesterol 212 H LDL Cholesterol, Calc 132 H HDL Cholesterol 45 Cholesterol/HDL Ratio 4.7 Beta-Hydroxybutyrate/Acetoacetate 4.1 H Ur Collection Type Urine Color Urine Clarity Urine pH Ur Specific [place] Urine Protein Urine Glucose (UA) Urine Ketones Urine Blood Urine Nitrite Urine Bilirubin Urine Urobilinogen (Auto) Ur Leukocyte Esterase Urine RBC Urine WBC Ur Squamous Epith Cells Urine Bacteria Ur Culture Indicated? Urine Opiates Screen Urine Fentanyl Screen Ur Barbiturates Screen U Amphetamin/Meth Scrn U Benzodiazepines Scrn U Cocaine Metab Screen U Marijuana (THC) Screen Ethyl Alcohol 165.1 H Hepatitis A IgM Ab Non Reactive Hep Bs Antigen Non Reactive Hep B Core IgM Ab Non Reactive Hepatitis C Antibody Non Reactive 09/01/25 09:00 WBC RBC Hgb Hct MCV MCH MCHC RDW Std Deviation Plt Count Neut % (Auto) Lymph % (Auto) [place] % (Auto) Eos % (Auto) Baso % (Auto) Neut # (Auto) Lymph # (Auto) Stokes # (Auto) Eos # (Auto) Baso # (Auto) Immature Gran # (Auto) Absolute Nucleated RBC Immature Gran % Nucleated RBC % APTT VBG pH VBG pCO2 VBG pO2 VBG O2 Sat (Chiqui) VBG Base Excess Sodium 144 Potassium 3.7 Chloride 109 H Carbon Dioxide 21.9 Anion Gap 13 BUN 6 L Creatinine 0.8 Estim Creat Clear Calc 112.0 eGFR > 60 BUN/Creatinine Ratio 8 L Glucose [address] Glu mg/dL Hemoglobin A1c Calculated Osmolality 285 Lactic Acid 1.8 Calcium 8.6 Corrected Calcium 8.6 Phosphorus 3.5 Magnesium 2.0 Total Bilirubin AST ALT Alkaline Phosphatase Total Protein Albumin 4.6 Globulin Albumin/Globulin Ratio Triglycerides Cholesterol LDL Cholesterol, Calc HDL Cholesterol Cholesterol/HDL Ratio Beta-Hydroxybutyrate/Acetoacetate Ur Collection Type Urine Color Urine Clarity Urine pH Ur Specific [place] Urine Protein Urine Glucose (UA) Urine Ketones Urine Blood Urine Nitrite Urine Bilirubin Urine Urobilinogen (Auto) Ur Leukocyte Esterase Urine RBC Urine WBC Ur Squamous Epith Cells Urine Bacteria Ur Culture Indicated? Urine Opiates Screen Urine Fentanyl Screen Ur Barbiturates Screen U Amphetamin/Meth Scrn U Benzodiazepines Scrn U Cocaine Metab Screen U Marijuana (THC) Screen Ethyl Alcohol Hepatitis A IgM Ab Hep Bs Antigen Hep B Core IgM Ab Hepatitis C Antibody ABG Interpretation ABG results: 08/31/25 21:17 VBG pH 7.26 L VBG pCO2 37 VBG pO2 28 VBG Base Excess -10 L Quality Measures Quality Measures VTE prophylaxis Assessment & Plan Assessment Current Active Medications: Generic Name Dose Route Start Last Admin Trade Name Freq PRN Reason Stop Dose Admin Acetaminophen 650 mg 09/01/25 00:19 Acetaminophen 325 Mg Tablet PO 10/01/25 00:18 Q6H PRN PAIN 1-10 OR FEVER > 101 Dextrose 25 ml 09/01/25 00:13 Dextrose 50%-Water Inj 50 Ml Syringe IV [id number] PRN Blood Sugar - Low Famotidine 20 mg 09/01/25 09:00 09/01/25 08:32 Famotidine Inj 10 Mg/Ml Vial 2 Ml IVP 10/01/25 08:59 20 mg QDAY DIANE Administration Folic Acid 1 mg 09/01/25 09:00 09/01/25 08:51 Folic Acid 1 Mg Tablet PO 09/06/25 08:59 1 mg BID DIANE Administration Heparin Sodium (Porcine) 5,000 unit 09/01/25 06:00 09/01/25 05:53 Heparin Sod Inj 5000 Unit/Ml Vial SC 09/15/25 05:59 5,000 unit Q8HR DIANE Administration Insulin Human Regular 100 unit in 100 mls @ 5.897 mls/hr 08/31/25 23:56 09/01/25 09:00 Myxredlin IV 09/30/25 23:55 0.025 unit/kg/hr .[id number] PRN 1.474 mls/hr PER PROTOCOL Titration Protocol 0.1 UNIT/KG/HR Potassium Chloride 20 meq/ 1,010 mls @ 250 mls/hr 09/01/25 00:13 09/01/25 08:32 Dextrose/Lactated Ringer's IV 10/01/25 00:12 250 mls/hr .Q4H3M PRN Administration K LEVEL 3.3 TO 5.3 mM/L Potassium Chloride 40 meq/ 1,020 mls @ 250 mls/hr 09/01/25 00:13 Dextrose/Lactated Ringer's IV 10/01/25 00:12 .Q4H5M PRN K LEVEL < 3.3mM/L Potassium Chloride 10 meq in 100 mls @ 100 mls/hr 09/01/25 00:13 Kcl Ivpb IV 10/01/25 00:12 .Q1H PRN IF POTASSIUM LESS THAN 3.3 Magnesium Sulfate 2 gm in 50 mls @ 25 mls/hr 09/01/25 00:13 Magnesium Sulfate Ivpb IV 10/01/25 00:12 .Q2H PRN PER DKA PROTOCOL Dextrose/Lactated Ringer's 1,000 mls @ 250 mls/hr 09/01/25 00:13 D5-Lr IV 10/01/25 00:12 .Q4H PRN PER PROTOCOL Lactated Ringer's 1,000 mls @ 250 mls/hr 09/01/25 00:13 09/01/25 08:32 Lactated Ringers IV 09/02/25 00:12 0 mls/hr .Q4H PRN Infusion PER PROTOCOL Potassium Chloride 20 meq/ 1,010 mls @ 250 mls/hr 09/01/25 00:13 Lactated Ringer's IV 10/01/25 00:12 .Q4H3M PRN K LEVEL 3.3 TO 5.3mM/L Potassium Chloride 40 meq/ 1,020 mls @ 250 mls/hr 09/01/25 00:13 Lactated Ringer's IV 10/01/25 00:12 .Q4H5M PRN K LEVEL < 3.3 mM/L Potassium Chloride 10 meq in 100 mls @ 50 mls/hr 09/01/25 00:13 09/01/25 08:32 Kcl Ivpb IV 10/01/25 00:12 Infused PRN PRN Infusion K LEVEL 3.3 to 5.3 & BG > 200 Potassium Phosphate 15 mmol in 250 mls @ 62.5 mls/hr 09/01/25 00:13 Pot Phos 15 Mmol In Ns 250 Ml IV 10/01/25 00:12 PRN PRN Phosphate <= 1mg/dL Sodium Phosphate 15 mmol/ 255 mls @ 62.5 mls/hr 09/01/25 00:13 Sodium Chloride IV 10/01/25 00:12 .Q4H5M PRN Phosphate <= 1mg/dL and K> than 5.3 Lorazepam 0.5 mg 09/01/25 00:52 Lorazepam 0.5 Mg Tablet PO 09/06/25 00:51 Q4HR PRN CIWA Score 2-6 Lorazepam 1 mg 09/01/25 00:52 Lorazepam 0.5 Mg Tablet PO 09/06/25 00:51 Q4HR PRN CIWA SCORE 7-11 Lorazepam 2 mg 09/01/25 00:52 Lorazepam 0.5 Mg Tablet PO 09/06/25 00:51 Q4HR PRN CIWA SCORE 12-15 Ondansetron HCl 4 mg 09/01/25 00:19 09/01/25 02:42 Ondansetron Inj 2 Mg/Ml Inj 2 Ml IV 10/01/25 00:18 4 mg Q6H PRN Administration NAUSEA OR VOMITING Protocol Sennosides 2 tab 09/01/25 00:19 Senna Tablet PO 10/01/25 00:18 BID PRN CONSTIPATION Protocol Sodium Bicarbonate 50 ml 09/01/25 00:13 Sodium Bicarb Inj 8.4% Syr 50 Ml Syringe IV 10/01/25 00:12 Q4HR PRN For ph <= to 7.0 Thiamine HCl 100 mg 09/01/25 09:00 09/01/25 08:51 Thiamine 100 Mg Tablet PO 10/01/25 08:59 100 mg QDAY DIANE Administration Plan 30-year-old male with past medical history of DM2, on insulin, metformin, and Jardiance at home was admitted to the ICU for DKA. NEURO #No active problems CARDIO #No active disease PULM #No active disease GI #Intractable nausea and vomiting likely secondary to DKA, resolved NEPHRO #High anion gap metabolic acidosis, resolved #Lactic acidosis, resolved HEME #No active disease ENDO #DKA, resolved #DM2 ISS and degludec 17 units daily Hypoglycemia protocol ordered Follow-up C-peptide and insulin level #Hyperlipidemia Patient's triglyceride 177, cholesterol 212, LDL 132 Patient started on atorvastatin 40 ID # No active disease MSK #No active problems SKIN #No active problems Miscellaneous #Alcohol intoxication Patient is at the alcohol was significantly elevated upon admission at 165. Plan: CIWA protocol Feeding/fluids: carb low Analgesia: N/A Sedation: N/A Thromboprophylaxis: heparin sc Ulcer prophylaxis: famotidine Glycemic control: AC Spontaneous breathing trial: N/A Bowel care: N/A Deescalation of antibiotics: None CODE STATUS: Full Code Case disclosed with Attending Dr. Manav Rodriguez PGY2 Disclaimer: Even though this this note was dictated by speech recognition and even though it was carefully revised there may still be minor errors in plant health care technician due to voice recognition software. Attending Provider Attestation/Addendum Patient seen and examined, discussed with resident. In brief is a 30-year-old male who presents to the ER yesterday evening for altered mental status. He was found by family to be sluggish and ambulance was called. He was found to be both intoxicated as well as in DKA. He was admitted to the ICU. This morning his physical exam is within normal limits. He is awake alert and oriented and appropriate. He has been on insulin drip along with IV fluids and labs every 4 hours. His anion gap has closed x 2 and he will be transition to subcu insulin with a sliding scale. Case discussed with ICU team Labs, imaging records reviewed Approximate 35 minutes required for evaluation, exam, review, intervention, discussion formulation of plan of care
--- NOTE | 2025-09-01 11:21 | PC.NURSE ---
unable to reconcile medications due to patient not knowing the dosing, per pt mom will bring the medication once she goes home.
[2025-09-01 12:40] LABS: Albumin, Serum 4.3 gm/dL (3.5-5.0); Anion Gap 11 (7-16); BUN/Creatinine Ratio 9 Ratio (12-20); Blood Urea Nitrogen 6 mg/dL (9-23); Calcium 8.4 mg/dL (8.3-10.6); Calcium (Corrected) 8.4 mg/dL (8.5-10.1); Carbon Dioxide 24.9 mMol/L (20.0-31.0); Chloride 107 mMol/L (98-107); Creatinine (Component) 0.7 mg/dL (0.6-1.3); Estimated Creatinine Clearance 128.0 mL/min (>60); Glucose 150 mg/dL (74-106); Magnesium 1.9 mg/dL (1.6-2.6); Osmolality,Calculated 285 (275-295); Phosphorous 3.1 mg/dL (2.4-5.1); Potassium 3.8 mMol/L (3.4-5.1); Sodium 143 mMol/L (136-145); eGFR > 60 See Note
[2025-09-01] MEDS: INSULIN DEGLUDEC 5 UNIT/0.05 ML (PER 5 UNITS) 17 UNIT SC (12:56)
[2025-09-01] MEDS: POT CHL ADDITIVE 20 MEQ in RINGERS LACTATED 1000 ML 1,000 ML 250 MEQ IV (13:01)
--- NOTE | 2025-09-01 14:17 | PC.NURSE ---
patient will bring med for med reconciliation.
--- NOTE | 2025-09-01 15:51 | PC.SS ---
30YO Male, Reason for Visit: DKA Role and purpose of today?s contact was explained to patient?s mother Rizwana Glass. Patient unable to provide information for initial assessment due to being asleep. Patient?s primary medical surrogate decisionmaker is his mother Rizwana Glass [phone]. Patient?s mother is Tongan speaking. She has requested SS return at a later time to confirm PCP with patient. Patient?s mother explained patient is independent with ADL completion and ambulates independently as well. PCP: Unknown at this time. PHARMACY: [facility] [place]. Patient returning home when medically clear, mother to transport home. DISCHARGE PLAN: Home, joel Wagoner to transport. ? ALT. DECISIONMAKER: Joel Glass [phone].
--- NOTE | 2025-09-01 15:59 | PD.RESPRO ---
Documentation for date of: 09/01/25 Subjective Subjective Interval history: Patient is an 09/01/25 ICU downgrade originally admitted to ICU for DKA earlier the same day which has now resolved s/p insulin gtt. Patient was examined at bedside; they appear A&Ox3 and in NAD. Vitals/labs today WNL. Physical exam was non-contributory. Today, he seems to be doing well and is no longer showing signs of dizziness and lethargy. For now, he will continue being maintained on insulin sliding scale with adjustments made as needed guided by blood glucose levels. A C-Peptide has been ordered to clarify whether he has type I or type II diabetes. Otherwise, he will continue being treated with atorvastatin for his HLD and maintained on CIWA due to recent binge drinking episode. Exam Vital Signs Temp Pulse Resp BP Pulse Ox O2 Del Method 97.8 F 65 14 115/65 96 Room Air 09/01/25 14:00 09/01/25 15:00 09/01/25 15:00 09/01/25 15:00 09/01/25 15:00 09/01/25 13:00 Narrative Exam Gen: A&O X 3, NAD HEENT: NCAT, EOMI, Pupils reactive ANITA, not icteric. External ears normal. No rhinorrhea. Moist mucous membranes. Neck: Supple, full range of motion, no observable masses, No meningeal sign. Lungs: No Respiratory distress, clear bilateral. CV: RRR, no murmurs. Abdomen: Soft, nondistended, No rebound tenderness. MSK: No joint swelling, no redness, peripheral pulses presents, no peripheral edema. Skin: No rashes, petechiae, lesions.. Neuro: No focal neurological deficits appreciated, sensory and motor intact. Psych: Cooperative, appropriate mood and effect. Objective Labs 09/02/25 06:10 09/02/25 06:10 Labs: Laboratory Results - last 24 hr 08/31/25 08/31/25 08/31/25 21:17 21:21 22:02 WBC 7.3 RBC 4.83 Hgb 15.7 Hct 45.1 MCV 93 MCH 32.5 MCHC 34.8 RDW Std Deviation 46.0 H Plt Count 185 Neut % (Auto) 70 Lymph % (Auto) 20 [place] % (Auto) 7 Eos % (Auto) 1 Baso % (Auto) 1 Neut # (Auto) 5.1 Lymph # (Auto) 1.5 [place] # (Auto) 0.5 Eos # (Auto) 0.1 Baso # (Auto) 0.1 Immature Gran # (Auto) 0.03 H Absolute Nucleated RBC 0.00 Immature Gran % 0 Nucleated RBC % 0 APTT 20.9 L VBG pH 7.26 L VBG pCO2 37 VBG pO2 28 VBG O2 Sat (Chiqui) 47 L VBG Base Excess -10 L Sodium Potassium Chloride Carbon Dioxide Anion Gap BUN Creatinine Estim Creat Clear Calc eGFR BUN/Creatinine Ratio Glucose Estimated Ave Glu mg/dL Hemoglobin A1c Calculated Osmolality Lactic Acid Calcium Corrected Calcium Phosphorus Cancelled Magnesium Cancelled Total Bilirubin AST ALT Alkaline Phosphatase Total Protein Albumin Globulin Albumin/Globulin Ratio Triglycerides Cholesterol LDL Cholesterol, Calc HDL Cholesterol Cholesterol/HDL Ratio Beta-Hydroxybutyrate/Acetoacetate Ur Collection Type Clean Catch Urine Color Colorless A Urine Clarity Clear Urine pH 5.5 Ur Specific [place] 1.036 H Urine Protein Negative Urine Glucose (UA) 4+ A Urine Ketones 2+ A Urine Blood Negative Urine Nitrite Negative Urine Bilirubin Negative Urine Urobilinogen (Auto) Negative Ur Leukocyte Esterase Negative Urine RBC 1 Urine WBC 0 Ur Squamous Epith Cells 0 Urine Bacteria None Ur Culture Indicated? Not Indicated Urine Opiates Screen Negative Urine Fentanyl Screen Negative Ur Barbiturates Screen Negative U Amphetamin/Meth Scrn Negative U Benzodiazepines Scrn Negative U Cocaine Metab Screen Negative U Marijuana (THC) Screen Negative Ethyl Alcohol Hepatitis A IgM Ab Hep Bs Antigen Hep B Core IgM Ab Hepatitis C Antibody 08/31/25 09/01/25 09/01/25 23:06 00:00 04:20 WBC 7.1 RBC 4.14 L Hgb 13.6 D Hct 39.4 L MCV 95 MCH 32.9 MCHC 34.5 RDW Std Deviation 48.0 H Plt Count 168 Neut % (Auto) 56 Lymph % (Auto) 33 [place] % (Auto) 8 Eos % (Auto) 1 Baso % (Auto) 1 Neut # (Auto) 4.0 Lymph # (Auto) 2.3 [place] # (Auto) 0.6 Eos # (Auto) 0.1 Baso # (Auto) 0.1 Immature Gran # (Auto) 0.02 H Absolute Nucleated RBC 0.00 Immature Gran % 0 Nucleated RBC % 0 APTT VBG pH VBG pCO2 VBG pO2 VBG O2 Sat (Chiqui) VBG Base Excess Sodium 137 144 Potassium 4.2 3.6 D Chloride 99 108 H Carbon Dioxide 15.1 L 15.4 L Anion Gap 23 H 21 H BUN 6 L 7 L Creatinine 1.0 0.7 Estim Creat Clear Calc 89.3 127.5 eGFR > 60 > 60 BUN/Creatinine Ratio 6 L 10 L Glucose 620 H* [address] Glu mg/dL 344 H Hemoglobin A1c 13.6 H Calculated Osmolality 300 H 293 Lactic Acid 3.1 H Calcium 8.9 8.3 Corrected Calcium 8.9 8.3 L Phosphorus 4.2 3.3 Magnesium 2.0 1.8 Total Bilirubin 0.4 AST 16 ALT 18 Alkaline Phosphatase 144 H Total Protein 7.0 Albumin 4.5 4.2 Globulin 2.5 Albumin/Globulin Ratio 1.8 Triglycerides 177 H Cholesterol 212 H LDL Cholesterol, Calc 132 H HDL Cholesterol 45 Cholesterol/HDL Ratio 4.7 Beta-Hydroxybutyrate/Acetoacetate 4.1 H Ur Collection Type Urine Color Urine Clarity Urine pH Ur Specific [place] Urine Protein Urine Glucose (UA) Urine Ketones Urine Blood Urine Nitrite Urine Bilirubin Urine Urobilinogen (Auto) Ur Leukocyte Esterase Urine RBC Urine WBC Ur Squamous Epith Cells Urine Bacteria Ur Culture Indicated? Urine Opiates Screen Urine Fentanyl Screen Ur Barbiturates Screen U Amphetamin/Meth Scrn U Benzodiazepines Scrn U Cocaine Metab Screen U Marijuana (THC) Screen Ethyl Alcohol 165.1 H Hepatitis A IgM Ab Non Reactive Hep Bs Antigen Non Reactive Hep B Core IgM Ab Non Reactive Hepatitis C Antibody Non Reactive 09/01/25 09/01/25 09:00 11:48 WBC RBC Hgb Hct MCV MCH MCHC RDW Std Deviation Plt Count Neut % (Auto) Lymph % (Auto) [place] % (Auto) Eos % (Auto) Baso % (Auto) Neut # (Auto) Lymph # (Auto) [place] # (Auto) Eos # (Auto) Baso # (Auto) Immature Gran # (Auto) Absolute Nucleated RBC Immature Gran % Nucleated RBC % APTT VBG pH VBG pCO2 VBG pO2 VBG O2 Sat (Chiqui) VBG Base Excess Sodium 144 143 Potassium 3.7 3.8 Chloride 109 H 107 Carbon Dioxide 21.9 24.9 Anion Gap 13 11 BUN 6 L 6 L Creatinine 0.8 0.7 Estim Creat Clear Calc 112.0 128.0 eGFR > 60 > 60 BUN/Creatinine Ratio 8 L 9 L Glucose 121 H D [address] Glu mg/dL Hemoglobin A1c Calculated Osmolality 285 285 Lactic Acid 1.8 Calcium 8.6 8.4 Corrected Calcium 8.6 8.4 L Phosphorus 3.5 3.1 Magnesium 2.0 1.9 Total Bilirubin AST ALT Alkaline Phosphatase Total Protein Albumin 4.6 4.3 Globulin Albumin/Globulin Ratio Triglycerides Cholesterol LDL Cholesterol, Calc HDL Cholesterol Cholesterol/HDL Ratio Beta-Hydroxybutyrate/Acetoacetate Ur Collection Type Urine Color Urine Clarity Urine pH Ur Specific [place] Urine Protein Urine Glucose (UA) Urine Ketones Urine Blood Urine Nitrite Urine Bilirubin Urine Urobilinogen (Auto) Ur Leukocyte Esterase Urine RBC Urine WBC Ur Squamous Epith Cells Urine Bacteria Ur Culture Indicated? Urine Opiates Screen Urine Fentanyl Screen Ur Barbiturates Screen U Amphetamin/Meth Scrn U Benzodiazepines Scrn U Cocaine Metab Screen U Marijuana (THC) Screen Ethyl Alcohol Hepatitis A IgM Ab Hep Bs Antigen Hep B Core IgM Ab Hepatitis C Antibody ABG Interpretation ABG results: 08/31/25 21:17 VBG pH 7.26 L VBG pCO2 37 VBG pO2 28 VBG Base Excess -10 L Quality Measures Quality Measures VTE prophylaxis Assessment & Plan Assessment Current Active Medications: Generic Name Dose Route Start Last Admin Trade Name Freq PRN Reason Stop Dose Admin Acetaminophen 650 mg 09/01/25 00:19 Acetaminophen 325 Mg Tablet PO 10/01/25 00:18 Q6H PRN PAIN 1-10 OR FEVER > 101 Atorvastatin Calcium 40 mg 09/01/25 21:00 Atorvastatin Calcium 20 Mg Tablet PO 10/01/25 20:59 HS DIANE Dextrose 25 ml 09/01/25 00:13 Dextrose 50%-Water Inj 50 Ml Syringe IV [id number] PRN Blood Sugar - Low Dextrose 25 ml 09/01/25 14:20 Dextrose 50%-Water Inj 50 Ml Syringe IV 10/01/25 14:19 Q15MIN PRN BG 50-70 responsive npo pt Dextrose 50 ml 09/01/25 14:20 Dextrose 50%-Water Inj 50 Ml Syringe IV 10/01/25 14:19 Q15MIN PRN BG <50 OR BG <70 & pt unresponsive Famotidine 20 mg 09/01/25 09:00 09/01/25 08:32 Famotidine Inj 10 Mg/Ml Vial 2 Ml IVP 10/01/25 08:59 20 mg QDAY DIANE Administration Folic Acid 1 mg 09/01/25 09:00 09/01/25 08:51 Folic Acid 1 Mg Tablet PO 09/06/25 08:59 1 mg BID DIANE Administration Glucagon 1 mg 09/01/25 14:20 Glucagon Inj 1 Mg Vial IM Q15MIN PRN BG <70, and no IV access Heparin Sodium (Porcine) 5,000 unit 09/01/25 06:00 09/01/25 13:26 Heparin Sod Inj 5000 Unit/Ml Vial SC 09/15/25 05:59 5,000 unit Q8HR DIANE Administration Insulin Degludec 17 unit 09/01/25 12:45 09/01/25 12:56 Insulin Degludec 5 Unit/0.05 Ml (Per 5 Units) SC 10/01/25 12:44 17 unit QDAY DIANE Administration Insulin Human Lispro 0 unit 09/01/25 17:00 Insulin Lispro (Admelog) 1 Unit/0.01 Ml Unit SC 10/01/25 16:59 AC DIANE Protocol Lorazepam 0.5 mg 09/01/25 00:52 Lorazepam 0.5 Mg Tablet PO 09/06/25 00:51 Q4HR PRN CIWA Score 2-6 Lorazepam 1 mg 09/01/25 00:52 Lorazepam 0.5 Mg Tablet PO 09/06/25 00:51 Q4HR PRN CIWA SCORE 7-11 Lorazepam 2 mg 09/01/25 00:52 Lorazepam 0.5 Mg Tablet PO 09/06/25 00:51 Q4HR PRN CIWA SCORE 12-15 Ondansetron HCl 4 mg 09/01/25 00:19 09/01/25 02:42 Ondansetron Inj 2 Mg/Ml Inj 2 Ml IV 10/01/25 00:18 4 mg Q6H PRN Administration NAUSEA OR VOMITING Protocol Sennosides 2 tab 09/01/25 00:19 Senna Tablet PO 10/01/25 00:18 BID PRN CONSTIPATION Protocol Thiamine HCl 100 mg 09/01/25 09:00 09/01/25 08:51 Thiamine 100 Mg Tablet PO 10/01/25 08:59 100 mg QDAY DIANE Administration Plan Patient is 30-year-old male with a past medical history of diabetes mellitus type 2, on insulin for the past 1 year, reported no specific complaints, patient was sleepy and noncooperative on initial encounter but eventually he was more alert and volunteered information to [facility], reported he is not sure why he is in the emergency room who brought him here and eventually admitted to ICU for DKA. #DKA, now resolved as of 09/01 s/p insulin gtt #HAGMA, now resolved #Diabetes, type I vs. type II Presented on 09/01 with nonspecific dizziness/somnolence and found to have blood glucose 623, BHB 4.1, anion gap 23, VBG - (pH 7.26, pCO2 37, pO2 28) Reported to be diagnosed with diabetes mellitus 2 years ago and started on insulin 1 year ago At home, he takes 22 units of insulin BID along with Jardiance and metformin at home (reports compliance with his medications) Hemoglobin A1c this admission, 13.6 Dx: -09/01 C-Peptide ordered, showed ___ Rx: -Insulin sliding scale (Degludec 17U SC QD) -Monitor blood glucose levels #Hyperlipidemia 09/01 lipid panel showed - (triglycerides 177, cholesterol 212, LDL 132, HDL 47) Rx: -Atorvastatin 40 mg PO HS #Recent binge drinking episode Prior to his admission, reported to have drank 6 tall cans of beer on 08/31 during Thanksgiving Reported to being an occasional drinker Rx: -CISC protocol -Thiamine 100 mg PO QD -Folic acid 1 mg PO BID Hospital Management: Disposition: Med Surg Diet: Carbohydrate Consistent Low GI Prophylaxis: Pepcid Bowel Prophylaxis: Senna DVT Prophylaxis: Heparin CODE STATUS: Full Code I have examined the patient and conferred with my attending, Dr. Lugo, and my senior resident, Dr. Pizarro, regarding them. Ramon Sheth DO PGY-1 Internal Medicine Attending Provider Attestation/Addendum I have examined the patient, reviewed labs and imaging findings, discussed the case with the resident(s), and reviewed entered orders. I agree with the plan of care as outlined in this note. Dr. Brittney MD
[2025-09-01] MEDS: INSULIN LISPRO (AdmeLOG) 1 UNIT/0.01 ML UNIT SC (17:08)
[2025-09-01] MEDS: ATORVASTATIN CALCIUM 20 MG TABLET 40 MG PO (21:09)
[2025-09-02 00:16] VITALS: BP 105/55; PULSE 70; RESP 17; TEMP 36.2; O2SAT 97
[2025-09-02 04:00] VITALS: BP 111/71; PULSE 80; RESP 16; TEMP 36.6; O2SAT 98
[2025-09-02] MEDS: HEPARIN SOD INJ 5000 UNIT/ML VIAL SC (05:03)
[2025-09-02 06:00] VITALS: BMI 24.7
[2025-09-02 06:33] LABS: Basophils # (Auto) 0.0 Thou/mm3 (0.0-0.2); Basophils % (Auto) 1 % (0-2.5); Eosinophils # (Auto) 0.2 Thou/mm3 (0.0-0.5); Eosinophils % (Auto) 3 % (0-10); Hematocrit 37.6 % (41.0-53.0); Hemoglobin 12.8 g/dL (13.5-16.0); Immature Granulocytes Auto 0.03 Thou/mm3 (0.00-0.00); Lymphocytes # (Auto) 2.0 Thou/mm3 (1.0-4.8); Lymphocytes % (Auto) 32 % (10-50); Mean Corpuscular HGB Conc 34.0 g/dl (31.0-37.0); Mean Corpuscular Hemoglobin 32.4 pg (25.0-35.0); Mean Corpuscular Volume 95 fL (80-100); Monocytes # (Auto) 0.6 Thou/mm3 (0.0-0.8); Monocytes % (Auto) 9 % (0-12); Neutrophils # (Auto) 3.4 Thou/mm3 (1.8-7.7); Neutrophils % (Auto) 55 % (37-80); Nucleated Red Blood Cell # 0.00 Thou/mm3 (0.00-0.00); Nucleated Red Blood Cell % 0 /100 WBC (0); Platelet Count 157 Thou/mm3 (140-440); RDW Standard Deviation 47.5 fL (35.1-43.9); Red Blood Count 3.95 Miln/mm3 (4.50-5.90); White Blood Count 6.2 Thou/mm3 (3.8-10.6)
[2025-09-02 07:00] LABS: Alanine Aminotransferase 15 U/L (10-49); Albumin, Serum 3.6 gm/dL (3.5-5.0); Albumin/Globulin Ratio 1.9 (1.2-2.2); Alkaline Phosphatase 67 U/L (46-116); Anion Gap 12 (7-16); Aspartate Amino Transferase 19 U/L (0-34); BUN/Creatinine Ratio 15 Ratio (12-20); Bilirubin,Total 0.4 mg/dL (0.3-1.2); Blood Urea Nitrogen 9 mg/dL (9-23); Calcium 8.8 mg/dL (8.3-10.6); Calcium (Corrected) 9.1 mg/dL (8.5-10.1); Carbon Dioxide 23.6 mMol/L (20.0-31.0); Chloride 103 mMol/L (98-107); Creatinine (Component) 0.6 mg/dL (0.6-1.3); Estimated Creatinine Clearance 149.4 mL/min (>60); Globulin 1.9 gm/dL (2.3-3.5); Glucose 213 mg/dL (74-106); Osmolality,Calculated 282 (275-295); Potassium 3.8 mMol/L (3.4-5.1); Sodium 139 mMol/L (136-145); Total Protein 5.5 gm/dL (5.7-8.2); eGFR > 60 See Note
[2025-09-02] MEDS: INSULIN LISPRO (AdmeLOG) 1 UNIT/0.01 ML UNIT SC ×2 (07:21→11:07)
[2025-09-02 08:00] VITALS: BP 114/65; PULSE 61; RESP 16; TEMP 36.1; O2SAT 18
[2025-09-02 09:16] VITALS: PULSE 72; RESP 18; RESP 98
[2025-09-02] MEDS: INSULIN DEGLUDEC 5 UNIT/0.05 ML (PER 5 UNITS) 10 UNIT SC (10:02)
[2025-09-02] MEDS: FAMOTIDINE INJ 10 MG/ML VIAL 2 ML 20 MG IVP (10:03)
[2025-09-02] MEDS: INSULIN DEGLUDEC 5 UNIT/0.05 ML (PER 5 UNITS) 17 UNIT SC (10:03)
[2025-09-02] MEDS: FOLIC ACID 1 MG TABLET PO (10:04)
[2025-09-02] MEDS: THIAMINE 100 MG TABLET PO (10:04)
--- NOTE | 2025-09-02 14:06 | PD.RESDS ---
Planned Discharge Date 09/02/25 DS: Providers Provider Date of admission: 09/01/25 00:22 Primary care physician: Physician No Primary/Family Admitting Provider: Ant Naylor MD Attending Provider on Admission: Ant Naylor MD Consults: 09/01/25 00:14 Referral Registered Dietitian Routine Comment: Attending Provider on DC: Gm Lugo MD Discharging Provider: Ramon Sheth MD DS: Diagnosis Problem List Completed Was Problem List Reviewed/Reconciled?: Yes Hospital Course Hospital Course Hospital course: Summary: Patient is 30-year-old male with a past medical history of diabetes mellitus type 2, on insulin for the past 1 year, reported no specific complaints, patient was sleepy and noncooperative on initial encounter but eventually he was more alert and volunteered information to [facility], reported he is not sure why he is in the emergency room who brought him here and eventually admitted to ICU for DKA. Hospital: During patient's hospital course, he was treated with insulin gtt in the ICU until his DKA resolved as evinced by the anion gap closing twice. He was then down-graded to floors where he was maintained on insulin sliding scale. He was also maintained on CIWA protocol due to self-report of recent binge drinking episode but this did not end up being needed. By 09/02, patient was deemed clinically stabilized and discharged home with instructions to maintain better control of his blood sugars with an updated insulin and anti-diabetic regimen. Patient is safe to discharge. Further discharge instructions below. Discharge Recommendations: -Follow up with PCP within 1 week of discharge (make sure to notify him about your hemoglobin A1c which was 13.6 and that you were admitted for diabetic ketoacidosis). -Your hemoglobin A1c (a report card on your blood sugars which should ideally be 7.0 or below) this admission was found to be 13.6, indicating very poor control of your blood sugars, we will be discharging you with Degludec (Tresiba) 20 U to be taken once every night. -We have also sent you off with some sliding scale insulin. Please aim to keep your morning blood sugars in the range between 90-140. -If morning blood sugars are above 140, start taking an extra 2 U of Degludec and check again the next morning. If still above 140, increase by 2 U again, repeating until your morning blood sugar is within goal range of 90-140 the next morning. -If morning blood sugars are below 90, subtract 2 U of Degludec and check again the next morning. If still below 90, subtract by 2 U again, repeating until your morning blood sugar is within goal range of 90-140 the next morning. -We are sending you with sliding scale insulin lispro (Admelog Solostar U-100 Insulin) to be used right before mealtime. Before you eat, please check your blood sugar, and then use the following chart to determine how much sliding scale insulin to administer to yourself: Blood sugar less than 150: 0U Blood sugar 150-199: 2U Blood sugar 200-249: 4U Blood sugar 250-299: 6U Blood sugar 300-349: 8U Blood sugar greater than 350: 10U -Please stop taking your Jardiance until further notice as this medication can increase your risk of urinary tract infections when blood glucose levels are chronically uncontrolled -Continue rest of medications as previously prescribed -Return to the ED or call EMS if symptoms return and/or worsen. Hospital Diagnoses: #DKA, now resolved as of 09/01 s/p insulin gtt #HAGMA, now resolved #Lactic acidosis, resolved #Diabetes, type I vs. type II #Hyperlipidemia #Recent binge drinking episode #Intractable nausea and vomiting likely secondary to DKA, resolved Status at Discharge Cognitive/Behavioral Status at Discharge: stable Functional Status at Discharge: independent ambulation Overall Status at Discharge: patient is back to baseline Patient's care plan was discussed with my attending, Dr. Lugo, and senior resident, Dr. Crouch. Ramon Sheth, DO Internal Medicine, PGY-1 Time Spent with Patient Time attestation: Total time spent providing and/or coordinating discharge services: Time spent: Greater than 30 minutes Exam Vital Signs Temp Pulse Resp BP Pulse Ox O2 Del Method 97.0 F 72 18 114/65 18 L Room Air 09/02/25 08:00 09/02/25 09:16 09/02/25 09:16 09/02/25 08:00 09/02/25 08:00 09/02/25 04:00 Narrative Exam Gen: A&O X 3, NAD HEENT: NCAT, EOMI, Pupils reactive ANITA, not icteric. External ears normal. No rhinorrhea. Moist mucous membranes. Neck: Supple, full range of motion, no observable masses, No meningeal sign. Lungs: No Respiratory distress, clear bilateral. CV: RRR, no murmurs. Abdomen: Soft, nondistended, No rebound tenderness. MSK: No joint swelling, no redness, peripheral pulses presents, no peripheral edema. Skin: No rashes, petechiae, lesions.. Neuro: No focal neurological deficits appreciated, sensory and motor intact. Psych: Cooperative, appropriate mood and effect. Discharge Plan Plan Patient Disposition: HOME (Self Care) Care Plan Goals: Discharge Recommendations: -Follow up with PCP within 1 week of discharge (make sure to notify him about your hemoglobin A1c which was 13.6 and that you were admitted for diabetic ketoacidosis). -Your hemoglobin A1c (a report card on your blood sugars which should ideally be 7.0 or below) this admission was found to be 13.6, indicating very poor control of your blood sugars, we will be discharging you with Degludec (Tresiba) 20 U to be taken once every night. -We have also sent you off with some sliding scale insulin. Please aim to keep your morning blood sugars in the range between 90-140. -If morning blood sugars are above 140, start taking an extra 2 U of Degludec and check again the next morning. If still above 140, increase by 2 U again, repeating until your morning blood sugar is within goal range of 90-140 the next morning. -If morning blood sugars are below 90, subtract 2 U of Degludec and check again the next morning. If still below 90, subtract by 2 U again, repeating until your morning blood sugar is within goal range of 90-140 the next morning. -We are sending you with sliding scale insulin lispro (Admelog Solostar U-100 Insulin) to be used right before mealtime. Before you eat, please check your blood sugar, and then use the following chart to determine how much sliding scale insulin to administer to yourself: Blood sugar less than 150: 0U Blood sugar 150-199: 2U Blood sugar 200-249: 4U Blood sugar 250-299: 6U Blood sugar 300-349: 8U Blood sugar greater than 350: 10U -Please stop taking your Jardiance until further notice as this medication can increase your risk of urinary tract infections when blood glucose levels are chronically uncontrolled -Continue rest of medications as previously prescribed -Return to the ED or call EMS if symptoms return and/or worsen. Prescriptions/Referrals Prescriptions/Med Rec: New insulin degludec 100 unit/mL (3 mL) insulin pen 20 unit subcut QPM Qty: 15 2RF metformin 1,000 mg tablet 1,000 mg PO BIDWMEAL Qty: 30 2RF insulin lispro [Admelog SoloStar U-100 Insulin] 100 unit/mL insulin pen 1 sliding scale dose subcut USEASDIRECTD Qty: 15 1RF (DME) FreeStyle Nazia 3 Plus Sensor Device See Rx Instructions .Route Qty: 1 3RF Rx Instructions: As directed (DME) pen needle, diabetic [1st Tier Unifine Pentips] 29 gauge x 1/2 needle See Rx Instructions .Route Qty: 100 2RF Rx Instructions: As directed Referrals: No Primary/Family,Physician [Primary Care Provider] Patient/Caregiver Discharge Instructions Education Materials: CGM, Diabetes: Keeping Feet Healthy, Diabetes Exercise Get Started, Diabetes: Exams and Tests, Diabetes Carbs Fats Protein Print Language: [place] Stand Alone Forms: Anali Award Info., Patient Portal Info Letter Discharge Order Discharge Orders: Discharge (Routine); Ordered 09/02/25 Ordered By: Luis Crouch Quality Discharge Quality Measures VTE prophylaxis Attestestation MD Attestation I have examined the patient, reviewed labs and imaging findings, discussed the case with the resident(s), and reviewed entered orders. I agree with the plan of care as outlined in this note. Time Spent: [address] Brittney MD
[2025-09-07 07:00] LABS: C-Peptide* 0.28 ng/mL (0.80-3.85); Insulin* 40.3 uIU/mL (< OR = 18.4)
== END 2025-09-02 14:03 | disposition home or self-care (01) | DRG 638 ==
LOC: SERX 23:58 → SERHOLD 09-01 00:46 → S2SX 09-01 05:13 → S3NX 09-01 16:18
PROVIDERS: Nurse Practitioner Family; Student in an Organized Health Care Education/Training Program; Admitting Provider Student in an Organized Health Care Education/Training Program; Emergency Provider Emergency Medicine; Visit Provider Internal Medicine
DX: E10.10 Type 1 diabetes mellitus with ketoacidosis without coma (principal); F10.139 Alcohol abuse with withdrawal, unspecified; E78.5 Hyperlipidemia, unspecified; F10.129 Alcohol abuse with intoxication, unspecified; Z79.899 Other long term (current) drug therapy; Y90.6 Blood alcohol level of 120-199 mg/100 ml
CPT/HCPCS: 36415; 71045; 80053; 80061; 80069; 80074; 80307; 80320; 81001; 82010; 82803; 83036; 83525; 83605; 83735; 84100; 84681; 85025; 85730; 87081; 96361; 96374; 99283; J1644; J1815; J2405; J3480; J3490; J7120; J7121; A9270; G0480